=== PATIENT | male | born 1980 | race American Indian/Alaskan Native ===

== ENCOUNTER 2016-11-17 13:04 | Emergency (ER) | payer OTHER ==
[~2016-11-17] VITALS: Ht 175.3 cm; Wt 79.0 kg
[2016-11-17 13:08] VITALS: BP 118/86
[2016-11-17] MEDS ORDERED: IBUPROFEN 200 MG TABLET PO ONE (13:30)
[2016-11-17] MEDS ORDERED: IBUPROFEN 200 MG TABLET ONE (13:42)
== END 2016-11-17 14:36 | disposition home or self-care (01) ==
LOC: ED 14:00
DX: S63.633A Sprain of interphalangeal joint of left middle finger, initial encounter (principal); S63.631A Sprain of interphalangeal joint of left index finger, initial encounter; S63.637A Sprain of interphalangeal joint of left little finger, initial encounter; W22.01XA Walked into wall, initial encounter; Y93.89 Activity, other specified; Y99.0 Civilian activity done for income or pay; Y92.69 Other specified industrial and construction area as the place of occurrence of the external cause
CPT/HCPCS: 29125; 99284

== ENCOUNTER 2017-03-02 18:38 | Emergency (ER) | payer MEDICAID, OTHER ==
[~2017-03-02] VITALS: Ht 175.3 cm; Wt 75.2 kg
[2017-03-02 18:39] VITALS: BP 110/74
[2017-03-02] MEDS ORDERED: PLEASE ENTER ALLERGIES MC SCH ×2 (19:00)
[2017-03-02] MEDS ORDERED: LIDOCAINE 1%, 20ML SQ ONE (19:00)
[2017-03-02] MEDS ORDERED: DIPH,PERTUSS(ACELL),TET VAC/PF 0.5 ML IM-VACC ONE ×2 (19:00→19:13)
[2017-03-02] MEDS ORDERED: LIDOCAINE 1%, 20ML ONE (19:13)
[2017-03-02] MEDS ORDERED: BACITRACIN ZINC OINT 500U/GM, 0.9 GM ONE (20:11)
== END 2017-03-02 20:38 | disposition home or self-care (01) ==
LOC: ED 20:37
DX: S51.812A Laceration without foreign body of left forearm, initial encounter (principal); E03.9 Hypothyroidism, unspecified; K21.9 Gastro-esophageal reflux disease without esophagitis; F17.200 Nicotine dependence, unspecified, uncomplicated; X58.XXXA Exposure to other specified factors, initial encounter; Y93.89 Activity, other specified; Y92.009 Unspecified place in unspecified non-institutional (private) residence as the place of occurrence of the external cause; Y99.8 Other external cause status
CPT/HCPCS: 12002; 90471; 90715

== ENCOUNTER 2017-04-17 20:17 | Emergency (ER) | payer MEDICAID ==
[~2017-04-17] VITALS: Ht 175.3 cm; Wt 75.9 kg
[2017-04-17 20:23] VITALS: BP 148/93
== END 2017-04-17 22:29 | disposition home or self-care (01) ==
LOC: ED 21:50
DX: R20.2 Paresthesia of skin (principal); K21.9 Gastro-esophageal reflux disease without esophagitis; E03.9 Hypothyroidism, unspecified
CPT/HCPCS: 29125; 99283

== ENCOUNTER 2017-04-18 00:32 | Emergency (ER) | payer MEDICAID ==
[~2017-04-18] VITALS: Ht 175.3 cm; Wt 75.9 kg
[2017-04-18 00:33] VITALS: BP 129/85
== END 2017-04-18 01:43 | disposition home or self-care (01) ==
LOC: ED 01:39
DX: Z00.00 Encounter for general adult medical examination without abnormal findings (principal); E03.9 Hypothyroidism, unspecified; K21.9 Gastro-esophageal reflux disease without esophagitis; F79 Unspecified intellectual disabilities
CPT/HCPCS: 99281

== ENCOUNTER 2018-08-22 20:56 | Emergency (ER) | payer MEDICAID ==
[~2018-08-22] VITALS: Ht 175.3 cm; Wt 69.8 kg
[2018-08-22 20:59] VITALS: BP 131/83
[2018-08-22] MEDS ORDERED: NITROGLYCERIN/D5W PMX 250 ML ONE (21:13)
[2018-08-22] MEDS ORDERED: LIDOCAINE-MPF 1%, 5ML ONE (21:13)
--- NOTE | 2018-08-22 21:20 | NUR ---
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 Pt has verticle laceration from "a rusted screw" he used to cut himself. Pt states he does not want to , nor did this to kill himself, states he was sad thinking about his mother and did this is how he carlos sometimes. Pt in "half way house", caregiver at bedside
[2018-08-22] MEDS ORDERED: DIPH,PERTUSS(ACELL),TET VAC/PF 0.5 ML IM-VACC ONE ×2 (21:30→22:52)
== END 2018-08-22 23:06 | disposition home or self-care (01) ==
LOC: ED 22:40
DX: S51.812A Laceration without foreign body of left forearm, initial encounter (principal); A35 Other tetanus; E11.9 Type 2 diabetes mellitus without complications; K21.9 Gastro-esophageal reflux disease without esophagitis; X78.9XXA Intentional self-harm by unspecified sharp object, initial encounter; Y93.89 Activity, other specified; Y92.009 Unspecified place in unspecified non-institutional (private) residence as the place of occurrence of the external cause; Y99.8 Other external cause status
CPT/HCPCS: 12032; 90471; 90715

== ENCOUNTER 2018-08-30 07:55 | Emergency (ER) | payer MEDICAID ==
[~2018-08-30] VITALS: Ht 182.9 cm; Wt 78.0 kg
[2018-08-30] MEDS ORDERED: SODIUM BICARBONATE 1 MEQ/ML, 50ML VIAL ONE (08:00)
--- NOTE | 2018-08-30 08:20 | NUR ---
Pt presented to gravel wheeler's office. Will be a ME case. Case number obtained, Dr. Cunningham aware.
--- NOTE | 2018-08-30 08:26 | NUR ---
Late entry: Pt arrived at 0757 via EMS in cardiac arrest w/ compressions in progress. EMS responded to pt's residence at 0701 for unresponsiveness. Pt was in PEA, CPR & intubation, 4 doses epi, 2 doses narcan, BG 153. Arrives with ETT 7.5 IP, no difficulty bagging, good chest rise, IO L distal tibia IP with good IVF flow & no swelling around site. Connected to [employer] monitor @ BS. 1 amp bicarb, 2 additional doses epi given. Rhythm PEA then asystole. Efforts terminated at 0804. See code sheet for additional info.
--- NOTE | 2018-08-30 08:26 | NUR ---
[facility] called, pt case presented to [facility]. Per canelo Kay not eligible for donation- release as appropriate.
--- NOTE | 2018-08-30 08:27 | NUR ---
pg code radha @[id number]
[2018-08-30] MEDS ORDERED: CODE BLUE RESPONSE XX ONE (08:30)
[2018-08-30] MEDS ORDERED: SODIUM BICARB 8.4%, 50ML SYRINGE ONE (08:30)
[2018-08-30] MEDS ORDERED: EPINEPHRINE SYRINGE 0.1 MG/ML, 10ML ONE (08:30)
--- NOTE | 2018-08-30 09:01 | NUR ---
Nursing ops aware of pt, will transport to [facility] when space available.
[2018-08-30] MEDS ORDERED: METF500T17 PO (09:05)
[2018-08-30] MEDS ORDERED: ATOR20TA37 PO (09:05)
[2018-08-30] MEDS ORDERED: DIVA-61 PO (09:05)
[2018-08-30] MEDS ORDERED: LEVO50TA5 PO (09:05)
[2018-08-30] MEDS ORDERED: QUET400T PO (09:05)
[2018-08-30] MEDS ORDERED: CETI10TA32 PO (09:05)
[2018-08-30] MEDS ORDERED: ARIP400S IM (09:05)
[2018-08-30] MEDS ORDERED: RANI150T4 PO (09:05)
--- NOTE | 2018-08-30 09:05 | NUR ---
Late entry: Pt's senior case manager arrived at 0815 and was able to confirm what CHISA reported which is that 25 of pt's seroquel pills were missing since yesterday. Obtained info for legal guardian & case worker will inform her. No other next of kin/family to notify per case worker. Pics of pt's MAR sent to her phone & will update emar for post-mortem workup.
--- NOTE | 2018-08-30 10:01 | NUR ---
Pt to [facility]. [facility] office to p/u from there.
== END 2018-08-30 10:16 | disposition expired ==
LOC: MERGE 07:55 → EDBD 07:55 → ED 08:47
DX: I46.9 Cardiac arrest, cause unspecified (principal); F20.9 Schizophrenia, unspecified
CPT/HCPCS: 99285